=== PATIENT | female | born 1990 | race Caucasian/White ===

== ENCOUNTER 2017-10-11 16:25 | Emergency (ER) | payer OTHER ==
[~2017-10-11] VITALS: Ht 157.5 cm; Wt 63.5 kg
[~2017-10-11 16:25] MED LIST: ALBU8HFA2 INH; ALBU90OI61 INH; AMOX500 PO; BENADRYL25 MG PO; BIRTH CONTROL; CLIN150 PO; CYCL10 PO; DIPH50; DOXY100 PO; FAMO20 PO; HYDACE5 PO; HYDGUAL120; IBUP600 PO; IBUP800 PO; NAPR375 PO; NAPR500 PO; NAPR550 PO; NIAC500ER PO; NITR100CA PO; OXYACE5T; OXYACE5T PO; PENVK500 PO; PRED1; PROM25 PO; Prednisone20 MG PO; QUASENSE PO; RXAMOX500 PO; RXNAPNA550 PO; RXSULTRIDS PO; SEASONIQUE BCP; SELENIUM PO; SULTRIDS PO; Triamcinolone A15 GM TOP; [UNRECOGNIZED DRUG - OTHER]
== END 2017-10-11 16:47 | disposition home or self-care (01) ==
LOC: ER 16:25
DX: J11.1 Influenza due to unidentified influenza virus with other respiratory manifestations (principal); Z88.0 Allergy status to penicillin; Z88.8 Allergy status to other drugs, medicaments and biological substances; Z79.899 Other long term (current) drug therapy; F17.200 Nicotine dependence, unspecified, uncomplicated
CPT/HCPCS: 99281

== ENCOUNTER → 2018-01-31 | Outpatient (CLI) | payer OTHER | LOC: LAB 15:00 → LAB SHORT 15:00 | DX: I82.409 Acute embolism and thrombosis of unspecified deep veins of unspecified lower extremity (principal) | CPT/HCPCS: 85379 ==

== ENCOUNTER → 2018-02-01 | Outpatient (CLI) | payer OTHER ==
[2018-02-04 10:30] LABS: Alanine Aminotransfer (ALT/SGP 103 U/L (12-78); Albumin, Blood 4.2 g/dL (3.4-5.0); Albumin/Globulin Ratio 1.4 (0.8-1.8); Alk Phos 64 U/L (50-136); Anion Gap 7 mmol/L (6-16); Aspartate Aminotrans (AST/SGOT 56 U/L (12-37); Bilirubin, Total 0.2 mg/dL (0.1-1.0); Blood Urea Nitrogen 15 mg/dL (8-24); Bun/Creatinine Ratio 21.2 (12.0-20.0); CO2, Blood 32 mmol/L (21-32); Calcium, Blood 9.2 mg/dL (8.5-10.1); Chloride, Blood 104 mmol/L (98-108); Creatinine, Blood 0.71 mg/dL (0.40-1.00); Glomerular Filtration Rate >60 (60-); Glucose, Blood 72 mg/dL (70-99); Potassium, Blood 4.3 mmol/L (3.5-5.5); Sodium, Blood 143 mmol/L (136-145); Total Protein, Blood 7.2 g/dL (6.4-8.2)
== END ==
LOC: LAB 14:00 → LAB SHORT 14:00
PROVIDERS: Internal Medicine
DX: E87.5 Hyperkalemia (principal)
CPT/HCPCS: 80053

== ENCOUNTER 2018-04-10 20:33 | Emergency (ER) | payer OTHER | END 2018-04-10 20:53 | disposition left against medical advice (07) | LOC: ER 20:33 | DX: Z53.21 Procedure and treatment not carried out due to patient leaving prior to being seen by health care provider (principal) ==

== ENCOUNTER 2018-08-28 09:45 | Emergency (ER) | payer OTHER ==
[~2018-08-28] VITALS: Ht 157.5 cm; Wt 68.0 kg
[2018-08-28] MEDS ORDERED: IBUP600 PO (10:33)
[2018-08-28] MEDS ORDERED: CYCL10 PO (10:33)
== END 2018-08-28 11:09 | disposition home or self-care (01) ==
LOC: ER 09:45
DX: M54.9 Dorsalgia, unspecified (principal); F17.210 Nicotine dependence, cigarettes, uncomplicated; Z88.1 Allergy status to other antibiotic agents; Z88.6 Allergy status to analgesic agent; Z79.899 Other long term (current) drug therapy
CPT/HCPCS: 96372; 99283-25; J1885

== ENCOUNTER 2018-10-27 12:58 | Emergency (ER) | payer OTHER ==
[~2018-10-27] VITALS: Ht 157.5 cm; Wt 81.7 kg
[2018-10-27] MEDS ORDERED: Amoxicillin500 MG PO (13:39)
== END 2018-10-27 13:43 | disposition home or self-care (01) ==
LOC: ER 12:58
DX: H66.91 Otitis media, unspecified, right ear (principal); Z88.5 Allergy status to narcotic agent; Z88.8 Allergy status to other drugs, medicaments and biological substances; Z79.899 Other long term (current) drug therapy; F17.210 Nicotine dependence, cigarettes, uncomplicated
CPT/HCPCS: 99283

== ENCOUNTER 2018-11-10 18:00 | Emergency (ER) | payer OTHER ==
[~2018-11-10] VITALS: Ht 157.5 cm; Wt 81.7 kg
[~2018-11-10 18:00] MED LIST changes: +Amoxicillin500 MG PO
[2018-11-10] MEDS ORDERED: Naprosyn500 MG PO (19:38)
[2018-11-10] MEDS ORDERED: ONDA4ODT MM (19:38)
== END 2018-11-10 19:54 | disposition home or self-care (01) ==
LOC: ER 18:00
DX: R51 Headache (principal); Z88.5 Allergy status to narcotic agent; Z88.0 Allergy status to penicillin; Z88.8 Allergy status to other drugs, medicaments and biological substances; Z79.899 Other long term (current) drug therapy; G43.909 Migraine, unspecified, not intractable, without status migrainosus; J45.909 Unspecified asthma, uncomplicated; F17.210 Nicotine dependence, cigarettes, uncomplicated
CPT/HCPCS: 96372; 99283-25; J1885

== ENCOUNTER 2018-11-17 11:29 | Emergency (ER) | payer OTHER ==
[~2018-11-17] VITALS: Ht 157.5 cm; Wt 81.7 kg
[~2018-11-17 11:29] MED LIST changes: +Naprosyn500 MG PO; +ONDA4ODT MM
[2018-11-17] MEDS ORDERED: Prednisone20 MG PO (12:11)
== END 2018-11-17 12:15 | disposition home or self-care (01) ==
LOC: ER 11:29
DX: L23.7 Allergic contact dermatitis due to plants, except food (principal); Z88.5 Allergy status to narcotic agent; Z88.0 Allergy status to penicillin; Z88.8 Allergy status to other drugs, medicaments and biological substances; Z79.899 Other long term (current) drug therapy; Z79.52 Long term (current) use of systemic steroids; F17.210 Nicotine dependence, cigarettes, uncomplicated
CPT/HCPCS: 96372; 99283-25; J1100

== ENCOUNTER 2019-05-22 12:59 | Emergency (ER) | payer MEDICAID ==
[~2019-05-22] VITALS: Ht 157.5 cm; Wt 90.7 kg
[2019-05-22] MEDS ORDERED: Triamcinolone A15 GM TOP (13:16)
== END 2019-05-22 13:37 | disposition home or self-care (01) ==
LOC: ER 12:59
DX: L23.7 Allergic contact dermatitis due to plants, except food (principal); Z88.5 Allergy status to narcotic agent; Z88.8 Allergy status to other drugs, medicaments and biological substances; F17.210 Nicotine dependence, cigarettes, uncomplicated; Z79.899 Other long term (current) drug therapy
CPT/HCPCS: 96372; 99283-25; J3301

== ENCOUNTER 2019-09-07 18:38 | Emergency (ER) | payer OTHER ==
[~2019-09-07] VITALS: Ht 160 cm; Wt 81.7 kg
[2019-09-07 19:22] LABS: Source, Urine Clean Catch
[2019-09-07 19:25] LABS: Bilirubin, Urine Neg (Neg); Blood, Urine Neg (Neg); Glucose Qualitative, Urine Neg (Neg); Ketones, Urine Neg (Neg); Leukocyte Esterase, Urine Neg (Neg); Nitrite, Urine Neg (Neg); Protein, Urine Neg (Neg); Specific Gravity, Urine 1.025 (1.003-1.022); Urobilinogen, Urine NORM (Normal)
[2019-09-07 19:26] LABS: Appearance, Urine Clear (Clear); Color, Urine Yellow (P-Yellow)
== END 2019-09-07 20:50 | disposition home or self-care (01) ==
LOC: ER 18:38
PROVIDERS: Emergency Medicine
DX: N83.202 Unspecified ovarian cyst, left side (principal); Z88.5 Allergy status to narcotic agent
CPT/HCPCS: 76830; 76856; 81003; 81025; 99284-25

== ENCOUNTER 2020-04-05 10:09 | Emergency (ER) | payer OTHER ==
[~2020-04-05] VITALS: Ht 160 cm; Wt 77.1 kg
== END 2020-04-05 10:57 | disposition home or self-care (01) ==
LOC: ER 10:09
DX: M43.6 Torticollis (principal); Z88.1 Allergy status to other antibiotic agents; Z88.5 Allergy status to narcotic agent
CPT/HCPCS: 96372; 99282-25; J1885

== ENCOUNTER → 2021-01-11 | Outpatient (CLI) | payer OTHER ==
[~2021-01-11] MED LIST changes: +BUPROPION 150 MG; +ONE-A-DAY PREN1 EAC1
[2021-01-14 01:09] LABS: CHLAMYDIA TRACHOMATIS, NAA Negative (Negative)
== END ==
LOC: LAB SHORT 12:18 → LAB 12:18
PROVIDERS: Obstetrics & Gynecology
DX: Z11.3 Encounter for screening for infections with a predominantly sexual mode of transmission (principal); Z88.5 Allergy status to narcotic agent; Z88.1 Allergy status to other antibiotic agents
CPT/HCPCS: 87491; 87591

== ENCOUNTER 2021-01-15 15:43 | Emergency (ER) | payer OTHER ==
[~2021-01-15] VITALS: Ht 157.5 cm; Wt 77.1 kg
[~2021-01-15 15:43] MED LIST changes: -BUPROPION 150 MG; -ONE-A-DAY PREN1 EAC1
== END 2021-01-15 17:25 | disposition home or self-care (01) ==
LOC: ER 15:43
DX: O98.211 Gonorrhea complicating pregnancy, first trimester (principal); Z3A.12 12 weeks gestation of pregnancy; Z88.5 Allergy status to narcotic agent; Z88.1 Allergy status to other antibiotic agents
CPT/HCPCS: 96372; 99281; A9270; J0696; J1580

== ENCOUNTER 2021-03-02 21:17 | Emergency (ER) | payer OTHER ==
[~2021-03-02] VITALS: Ht 157.5 cm; Wt 77.1 kg
[2021-03-02] MEDS ORDERED: BUPROPION 150 MG (22:02)
[2021-03-02] MEDS ORDERED: ONE-A-DAY PREN1 EAC1 (22:02)
== END 2021-03-02 23:05 | disposition home or self-care (01) ==
LOC: ER 21:17
DX: O99.891 Other specified diseases and conditions complicating pregnancy (principal); R10.9 Unspecified abdominal pain; Z3A.16 16 weeks gestation of pregnancy; Z88.5 Allergy status to narcotic agent; Z88.6 Allergy status to analgesic agent
CPT/HCPCS: 99283

== ENCOUNTER → 2021-03-09 | Outpatient (CLI) | payer OTHER ==
[~2021-03-09] MED LIST changes: +BUPROPION 150 MG; +ONE-A-DAY PREN1 EAC1
[2021-03-11 01:11] LABS: CHLAMYDIA TRACHOMATIS, NAA Negative (Negative)
== END | disposition home or self-care (01) ==
LOC: LAB 14:03 → LAB SHORT 14:03
PROVIDERS: Obstetrics & Gynecology
DX: Z11.3 Encounter for screening for infections with a predominantly sexual mode of transmission (principal)
CPT/HCPCS: 87491; 87591

== ENCOUNTER → 2021-04-04 | Outpatient (CLI) | payer OTHER ==
[2021-04-06 02:10] LABS: CHLAMYDIA TRACHOMATIS, NAA Negative (Negative); HPV 16 Negative (Negative); HPV 18 Negative (Negative); HPV OTHER HR TYPES Positive (Negative)
== END ==
LOC: LAB 16:49 → LAB SHORT 16:49
PROVIDERS: Obstetrics & Gynecology
DX: O09.91 Supervision of high risk pregnancy, unspecified, first trimester (principal); Z88.1 Allergy status to other antibiotic agents; Z88.5 Allergy status to narcotic agent
CPT/HCPCS: 87491; 87591; 87624; 87625; G0123

== ENCOUNTER → 2021-07-04 | Outpatient (CLI) | payer OTHER | LOC: LAB 17:18 → LAB SHORT 17:18 | DX: O09.91 Supervision of high risk pregnancy, unspecified, first trimester (principal) | CPT/HCPCS: 87081; 87150 ==

== ENCOUNTER 2021-07-21 04:51 | Inpatient (IN) | payer OTHER ==
[~2021-07-21] VITALS: Ht 157.5 cm; Wt 92.3 kg
[2021-07-21 06:03] LABS: BASOPHILS ABSOLUTE AUTO 0.07 K/mm3 (0.00-0.23); BASOPHILS PERCENT AUTO 1 % (0-2); EOSINOPHILS ABSOLUTE AUTO 0.13 K/mm3 (0.00-0.68); EOSINOPHILS PERCENT AUTO 1 % (0-6); Hematocrit 34.7 % (33.0-51.0); Hemoglobin 11.9 g/dL (11.5-16.0); IMMATURE GRAN ABSOLUTE AUTO 0.11 K/mm3 (0.00-0.10); IMMATURE GRAN PERCENT AUTO 1 % (0-1); LYMPHOCYTES ABSOLUTE AUTO 2.55 K/mm3 (0.84-5.20); LYMPHOCYTES PERCENT AUTO 20 % (21-46); MONOCYTES ABSOLUTE AUTO 0.88 K/mm3 (0.16-1.47); MONOCYTES PERCENT AUTO 7 % (4-13); Mean Corpuscular HGB 31.2 pg (26.0-34.0); Mean Corpuscular HGB Conc 34.3 g/dL (31.5-36.5); Mean Corpuscular Volume 91 fL (80-100); Mean Platelet Volume 9.6 fL (9.1-12.4); NEUTROPHILS ABSOLUTE AUTO 9.23 K/mm3 (1.96-9.15); NEUTROPHILS PERCENT AUTO 71 % (41-73); Platelet Count 320 K/mm3 (150-400); RDW Coefficient Variation 12.8 % (11.7-14.2); Red Blood Cell Count 3.82 M/mm3 (3.80-5.20); White Blood Cell Count 12.97 K/mm3 (4.00-11.30)
[2021-07-21 06:51] LABS: Influenza A, PCR NEGATIVE (NEGATIVE); Influenza B, PCR NEGATIVE (NEGATIVE); Resp Syncytial Virus, PCR NEGATIVE (NEGATIVE); SARS-Cov-2 (COVID-19) PCR, MMC NEGATIVE (NEGATIVE)
[2021-07-21 09:17] LABS: U Amphetamine Screen DETECTED; U Barbituate Screen Not Detected; U Benzodiazapine Screen Not Detected; U Buprenorphine Screen Not Detected; U Cannabinoids Screen DETECTED; U Cocaine Screen Not Detected; U Methadone Screen Not Detected; U Methamphetamine Screen DETECTED; U Opiates Screen Not Detected; U Oxycodone Screen Not Detected; U Phencyclidine Screen Not Detected; U Propoxyphene Screen Not Detected
--- NOTE | 2021-07-21 12:44 | NUR ---
at 1141 pt was pushing when she wasnt complete, pushed her cary bulb out inflated wtih 10cc, pt did realize she did that.
--- NOTE | 2021-07-21 14:55 | NUR ---
baby to desk, pt ambulate outside to smoke, she denies any dizzy or lightheadedness. pt has showered with no problems
--- NOTE | 2021-07-21 14:56 | NUR ---
pt voided in the shower
--- NOTE | 2021-07-21 21:51 | NUR ---
RN ENTERED ROOM AND FOUND PATIENT COSLEEPING WITH . PATIENT WOKEN UP, INFORMED OF SAFE TO SLEEP PRACTICES, AND PLACED IN CRIB. PATIENT STATED SHE "DID NOT MEAN TO FALL ASLEEP". WILL CONTINUE TO MONITOR AND EDUCATED PATIENT NECESSARY.
[2021-07-22] MEDS ORDERED: IBU800 MG PO (15:06)
[2021-07-23 03:10] LABS: CHLAMYDIA TRACHOMATIS, NAA Negative (Negative)
== END 2021-07-22 15:30 | disposition home or self-care (01) | DRG 806 ==
LOC: BC 04:51 → OBS 04:51 → BC 05:26
PROVIDERS: ADMIT Obstetrics & Gynecology
PROC: 10E0XZZ Delivery of Products of Conception, External Approach (ICD-10-PCS; principal; 2021-07-21)
PROC: 10907ZC Drainage of Amniotic Fluid, Therapeutic from Products of Conception, Via Natural or Artificial Opening (ICD-10-PCS; 2021-07-21)
PROC: 3E0R3BZ Introduction of Anesthetic Agent into Spinal Canal, Percutaneous Approach (ICD-10-PCS; 2021-07-21)
PROC: 00HU33Z Insertion of Infusion Device into Spinal Canal, Percutaneous Approach (ICD-10-PCS; 2021-07-21)
DX: O99.324 Drug use complicating childbirth (principal); O98.22 Gonorrhea complicating childbirth; Z37.0 Single live birth; A54.9 Gonococcal infection, unspecified; O98.52 Other viral diseases complicating childbirth; F15.10 Other stimulant abuse, uncomplicated; F19.10 Other psychoactive substance abuse, uncomplicated; O99.344 Other mental disorders complicating childbirth; F32.A Depression, unspecified; Z20.822 Contact with and (suspected) exposure to COVID-19; F41.9 Anxiety disorder, unspecified; R87.820 Cervical low risk human papillomavirus (HPV) DNA test positive; O70.0 First degree perineal laceration during delivery; Z3A.39 39 weeks gestation of pregnancy; Z88.1 Allergy status to other antibiotic agents; Z88.5 Allergy status to narcotic agent
CPT/HCPCS: 0241U; 36415; 51702; 85025; 86850; 86900; 86901; 87491; 87591; A9270; J1885; J2001; J2210; J2590; J3010; J7120

== ENCOUNTER 2022-04-03 21:33 | Emergency (ER) | payer OTHER ==
[~2022-04-03] VITALS: Ht 160 cm; Wt 61.2 kg
[~2022-04-03 21:33] MED LIST changes: +IBU800 MG PO
[2022-04-03] MEDS ORDERED: CYCL10 PO (21:52)
== END 2022-04-03 22:17 | disposition home or self-care (01) ==
LOC: ER 21:33
DX: S16.1XXA Strain of muscle, fascia and tendon at neck level, initial encounter (principal); F17.290 Nicotine dependence, other tobacco product, uncomplicated; Z88.5 Allergy status to narcotic agent; Z88.8 Allergy status to other drugs, medicaments and biological substances; X58.XXXA Exposure to other specified factors, initial encounter
CPT/HCPCS: A9270

== ENCOUNTER 2022-04-13 17:19 | Emergency (ER) | payer OTHER ==
[~2022-04-13] VITALS: Ht 160 cm; Wt 63.5 kg
[2022-04-13] MEDS ORDERED: AMOX500 PO (18:07)
[2022-04-13] MEDS ORDERED: ACET500 PO (18:51)
[2022-04-13] MEDS ORDERED: IBUP400 PO (18:51)
[2022-04-13] MEDS ORDERED: Robaxin750 MG PO (18:51)
== END 2022-04-13 19:14 | disposition home or self-care (01) ==
LOC: ER 17:19
DX: S29.012A Strain of muscle and tendon of back wall of thorax, initial encounter (principal); F17.200 Nicotine dependence, unspecified, uncomplicated; V89.2XXA Person injured in unspecified motor-vehicle accident, traffic, initial encounter; Z88.5 Allergy status to narcotic agent; Z88.8 Allergy status to other drugs, medicaments and biological substances; Z79.899 Other long term (current) drug therapy
CPT/HCPCS: 72070; 99285-25; A9270

== ENCOUNTER 2023-03-27 17:56 | Emergency (ER) | payer OTHER ==
[~2023-03-27] VITALS: Ht 160 cm; Wt 63.5 kg
[~2023-03-27 17:56] MED LIST changes: +ACET500 PO; +IBUP400 PO; +Robaxin750 MG PO
[2023-03-27 18:06] VITALS: BP 119/76
[2023-03-27] MEDS ORDERED: BIRTH CONTROL PO (18:08)
[2023-03-27] MEDS ORDERED: IBUP600 PO (19:10)
== END 2023-03-27 19:27 | disposition home or self-care (01) ==
LOC: ER 17:56
DX: S20.211A Contusion of right front wall of thorax, initial encounter (principal); Y04.8XXA Assault by other bodily force, initial encounter; Z88.5 Allergy status to narcotic agent; Z88.1 Allergy status to other antibiotic agents; Z79.899 Other long term (current) drug therapy; J45.909 Unspecified asthma, uncomplicated; F17.200 Nicotine dependence, unspecified, uncomplicated
CPT/HCPCS: 71101; 99284-25

== ENCOUNTER 2023-09-07 17:09 | Emergency (ER) | payer OTHER ==
[~2023-09-07] VITALS: Ht 157.5 cm; Wt 68.0 kg
[~2023-09-07 17:09] MED LIST changes: +BIRTH CONTROL PO
[2023-09-07 17:21] VITALS: BP 132/86
[2023-09-07 17:53] LABS: BASOPHILS ABSOLUTE AUTO 0.05 K/mm3 (0.00-0.23); BASOPHILS PERCENT AUTO 1 % (0-2); EOSINOPHILS ABSOLUTE AUTO 0.17 K/mm3 (0.00-0.68); EOSINOPHILS PERCENT AUTO 2 % (0-6); Hematocrit 36.8 % (33.0-51.0); Hemoglobin 12.5 g/dL (11.5-16.0); IMMATURE GRAN ABSOLUTE AUTO 0.02 K/mm3 (0.00-0.10); IMMATURE GRAN PERCENT AUTO 0 % (0-1); LYMPHOCYTES ABSOLUTE AUTO 2.64 K/mm3 (0.84-5.20); LYMPHOCYTES PERCENT AUTO 31 % (21-46); MONOCYTES ABSOLUTE AUTO 0.49 K/mm3 (0.16-1.47); MONOCYTES PERCENT AUTO 6 % (4-13); Mean Corpuscular HGB 31.2 pg (26.0-34.0); Mean Corpuscular Volume 92 fL (80-100); Mean Platelet Volume 8.4 fL (9.1-12.4); NEUTROPHILS ABSOLUTE AUTO 5.24 K/mm3 (1.96-9.15); NEUTROPHILS PERCENT AUTO 61 % (41-73); Platelet Count 377 K/mm3 (150-400); RDW Coefficient Variation 12.2 % (11.7-14.2); RDW Standard Deviation 41.2 fL (35.1-46.3); Red Blood Cell Count 4.01 M/mm3 (3.80-5.20); White Blood Cell Count 8.61 K/mm3 (4.00-11.30)
[2023-09-07 18:10] LABS: Albumin/Globulin Ratio 0.8 (0.8-1.8); Bilirubin, Total 0.3 mg/dL (0.1-1.0); Bun/Creatinine Ratio 14.3 (12.0-20.0); Calcium, Blood 8.9 mg/dL (8.5-10.1); Creatinine, Blood 0.7 mg/dL (0.40-1.00); Globulin, Blood 3.7 g/dL (2.2-4.0); Potassium, Blood 3.7 mmol/L (3.5-5.5); Total Protein, Blood 6.7 g/dL (6.4-8.2)
[2023-09-07 20:30] LABS: Appearance, Urine Clear (Clear); Bilirubin, Urine Neg (Neg); Blood, Urine Neg (Neg); Color, Urine Yellow (P-Yellow); Glucose Qualitative, Urine Neg (Neg); Ketones, Urine Neg (Neg); Leukocyte Esterase, Urine Neg (Neg); Nitrite, Urine Neg (Neg); Protein, Urine Neg (Neg); Source, Urine Clean Catch; Urobilinogen, Urine NORM (Normal)
== END 2023-09-08 00:28 | disposition home or self-care (01) ==
LOC: ER 17:09
PROVIDERS: Physician Assistant
DX: K92.2 Gastrointestinal hemorrhage, unspecified (principal); F17.200 Nicotine dependence, unspecified, uncomplicated; J45.909 Unspecified asthma, uncomplicated; Z88.1 Allergy status to other antibiotic agents; Z88.5 Allergy status to narcotic agent
CPT/HCPCS: 74177; 80053; 81003; 82272; 84703; 85025; 99284-25; Q9967

== ENCOUNTER 2023-09-29 04:37 | Emergency (ER) | payer OTHER ==
[~2023-09-29] VITALS: Ht 160 cm; Wt 63.5 kg
[2023-09-29] MEDS ORDERED: ENSKYCE 28 TAB1 EACH PO (04:56)
[2023-09-29] MEDS ORDERED: CLIN300 PO (05:51)
[2023-09-29 05:58] VITALS: BP 124/84
== END 2023-09-29 05:58 | disposition home or self-care (01) ==
LOC: ER 04:37
DX: L03.114 Cellulitis of left upper limb (principal); S51.802A Unspecified open wound of left forearm, initial encounter; F17.200 Nicotine dependence, unspecified, uncomplicated; X58.XXXA Exposure to other specified factors, initial encounter; Z88.1 Allergy status to other antibiotic agents; Z88.5 Allergy status to narcotic agent; Z79.3 Long term (current) use of hormonal contraceptives
CPT/HCPCS: 99283

== ENCOUNTER → 2023-12-27 | Outpatient (CLI) | payer OTHER ==
[~2023-12-27] MED LIST changes: +CLIN300 PO; +ENSKYCE 28 TAB1 EACH PO
[2023-12-28 10:24] LABS: Bacterial Vaginosis PCR Negative (NEGATIVE); Candida Group, PCR NOT DETECTED (NOT DETECT); Candida glabrata-krusei, PCR NOT DETECTED (NOT DETECT)
[2024-01-01 13:23] LABS: C. TRACHOMATIS BY TMA,THINPREP Negative (Negative); N. GONORRHOEAE BY TMA,THINPREP Negative (Negative); SPECIMEN SOURCE Cervical
[2024-01-05 02:19] LABS: HPV HIGH RISK BY TMA Detected; HPV SOURCE Cervical
[2024-01-05 16:31] LABS: HPV GENOTYPE 16 BY TMA Not Detected; HPV GENOTYPE 18/45 BY TMA Not Detected; HPVG SOURCE Cervical
== END ==
LOC: LAB 18:35 → LAB SHORT 18:35
PROVIDERS: Family Medicine
DX: Z01.419 Encounter for gynecological examination (general) (routine) without abnormal findings (principal); Z11.3 Encounter for screening for infections with a predominantly sexual mode of transmission
CPT/HCPCS: 87481; 87491; 87591; 87624; 87625; 87661; 87801; G0123

== ENCOUNTER 2024-12-21 | Emergency (ER) | payer OTHER ==
[~2024-12-21] VITALS: Ht 160 cm; Wt 72.6 kg
[2024-12-21 00:08] VITALS: BP 130/82
[2024-12-21] MEDS ORDERED: Triamcinolone Inj Susp 40 MG / ML 1ML Vial IM ONE (00:15)
[2024-12-21] MEDS ORDERED: Triamcinolone Acet 0.1% Ointment 15 GM TOP ONE (00:15)
== END 2024-12-21 00:30 | disposition home or self-care (01) ==
LOC: ER
DX: L23.7 Allergic contact dermatitis due to plants, except food (principal); L40.9 Psoriasis, unspecified; L20.9 Atopic dermatitis, unspecified; F17.200 Nicotine dependence, unspecified, uncomplicated; Z88.5 Allergy status to narcotic agent; Z88.8 Allergy status to other drugs, medicaments and biological substances
CPT/HCPCS: 96372; 99282-25; A9270

== ENCOUNTER 2025-02-26 03:21 | Emergency (ER) | payer OTHER ==
[~2025-02-26] VITALS: Ht 160 cm; Wt 72.6 kg
[2025-02-26 03:25] VITALS: BP 135/84
[2025-02-26] MEDS ORDERED: Doxycycline Mo100 M1 PO (04:24)
[2025-02-26 05:23] LABS: Chlamydia Trachomatis Urine NOT DETECTED (NOT DETECT); Neisseria Gonorrhoea Urine NOT DETECTED (NOT DETECT)
== END 2025-02-26 04:41 | disposition home or self-care (01) ==
LOC: ER 03:21
PROVIDERS: Emergency Medicine
DX: Z20.2 Contact with and (suspected) exposure to infections with a predominantly sexual mode of transmission (principal); J45.909 Unspecified asthma, uncomplicated; Z88.5 Allergy status to narcotic agent; F17.200 Nicotine dependence, unspecified, uncomplicated; Z79.899 Other long term (current) drug therapy
CPT/HCPCS: 87491; 87591; 96372; 99283-25; A9270; J0696

== ENCOUNTER → 2025-03-10 | Outpatient (CLI) | payer OTHER ==
[~2025-03-10] MED LIST changes: +Doxycycline Mo100 M1 PO
== END | disposition home or self-care (01) ==
LOC: LAB SHORT 07:33 → LAB 07:33
DX: N72 Inflammatory disease of cervix uteri (principal); R87.810 Cervical high risk human papillomavirus (HPV) DNA test positive
CPT/HCPCS: 88305